=== PATIENT | female | born 1980 | race Caucasian/White ===

== ENCOUNTER 2019-08-26 17:35 | Emergency (ER) | payer OTHER ==
[~2019-08-26] VITALS: Ht 162.6 cm; Wt 108.9 kg
[~2019-08-26 17:35] MED LIST: ADIPEX-P37.5 MG PO; CLARITIN10 M2 PO; CLEOCIN HCL300 MG PO; CYMBALTA60 MG PO; DOXYCYCLINE 10100 MG PO; GLUCOVANCE 5-51 EACH PO; GLYBURID-METFO1 EAC3 PO; IBUPROFEN 800800 M1 PO; LISINOPRIL20 MG PO; METAMUCIL PAC1 UDPKT PO; MOBIC7.5 MG PO; NORCO 5-325 TA1 EAC1 PO; NORCO 5-325 TA1 EACH PO; TOPAMAX 25 MG T25 M1 PO; TRICOR145 MG PO; ULTRAM 50MG TAB50 MG PO; ZANAFLEX4 M1 PO; ZOCOR20 MG PO
[2019-08-26] MEDS ORDERED: MEDROLDOSEPACK PO (18:03)
[2019-08-26] MEDS ORDERED: TRAMADOL 50 MG50 MG PO (18:03)
[2019-08-26 18:37] VITALS: BP 129/91
== END 2019-08-26 18:38 | disposition home or self-care (01) ==
LOC: M.ERS 17:35
DX: M25.571 Pain in right ankle and joints of right foot (principal); R03.0 Elevated blood-pressure reading, without diagnosis of hypertension; E78.00 Pure hypercholesterolemia, unspecified; E11.9 Type 2 diabetes mellitus without complications; M79.7 Fibromyalgia; Z88.1 Allergy status to other antibiotic agents; Z88.5 Allergy status to narcotic agent; Z91.040 Latex allergy status; Z90.710 Acquired absence of both cervix and uterus